=== PATIENT | female | born 1975 | race Caucasian/White ===

== ENCOUNTER → 2017-05-20 | Outpatient (CLI) | payer OTHER ==
[~2017-05-20] MED LIST: IOPAMIDOL (ISOVUE 370) 100 ML BTL IV ONE
== END ==
LOC: CIMAGING 09:56
PROVIDERS: ATTEND Internal Medicine
DX: I77.810 Thoracic aortic ectasia (principal); Q79.6 Ehlers-Danlos syndromes
CPT/HCPCS: 71275-PO; Q9967

== ENCOUNTER → 2017-08-21 | Outpatient (CLI) | payer OTHER | LOC: CIMAGING 08:32 | PROVIDERS: ATTEND Psychiatry & Neurology Neurology | DX: G40.909 Epilepsy, unspecified, not intractable, without status epilepticus (principal); S06.0X9A Concussion with loss of consciousness of unspecified duration, initial encounter | CPT/HCPCS: 70450-PO ==

== ENCOUNTER → 2018-03-21 | Outpatient (CLI) | payer OTHER | LOC: FIMAGING 08:28 | PROVIDERS: ATTEND Family Medicine | DX: Q79.6 Ehlers-Danlos syndromes (principal); Q04.8 Other specified congenital malformations of brain ==